=== PATIENT | female | born 1935 | race Asian ===

== ENCOUNTER 2017-05-29 13:49 | Outpatient (CLI) | payer MEDICARE, OTHER ==
--- NOTE | 2017-05-29 22:58 | Ultrasound Report ---
EXAM: ABDOMEN ULTRASOUND EXAM DATE: 05/29/2017 02:41 PM. CLINICAL HISTORY: Abdominal pain. History of cholecystectomy. COMPARISON: Noncontrast CT abdomen/pelvis 09/16/2015. Abdominal ultrasound 08/25/2010. TECHNIQUE: Real-time scanning was performed with static images obtained. FINDINGS: Liver: Increased parenchymal echogenicity, as before, most commonly indicating steatosis. Portal vein flow: Hepatopetal. Gallbladder: Surgically absent. Biliary System: Common bile duct measures 10 mm and tapers to 8 mm distally (upper limits of normal p ost cholecystectomy 10 mm). No intrahepatic or extrahepatic ductal dilatation. Pancreas: Atrophic, as before. The tail is obscured by overlying bowel gas. Kidneys: Right: 10.3 cm in length. Normal parenchymal echogenicity. Multiple cysts, the largest a 2.3 cm simpl e cyst in the medial midportion. No visualized shadowing stones or hydronephrosis. Left: 10.6 cm in length. No parenchymal echogenicity. Multiple cysts, the largest a 1.2 cm simple cys t in the inferior pole. Spleen: Normal size and echotexture, 7.6 cm in length. Aorta and Inferior Vena Cava: Atherosclerotic calcifications within the aorta. No aneurysm. The visua lized portions of the IVC are unremarkable. Other: None. IMPRESSION: 1. Steatotic liver. 2. No biliary ductal dilatation post cholecystectomy. 3. Bilateral simple renal cortical cysts. [facility] Referring Provider Line: [phone] SITE ID: [id number]
--- NOTE | 2017-05-30 15:24 | XRAY Report ---
EXAM: CHEST RADIOGRAPHY EXAM DATE: 05/29/2017 03:01 PM. CLINICAL HISTORY: CHEST CONGESTION. COMPARISON: None. TECHNIQUE: 2 views. FINDINGS: Lungs/Pleura: There is a vascular coil at the right lower lung. There is an adjacent 15 mm nodular de nsity at the right lung base. There is mild nonspecific prominence of the pulmonary interstitium. Mil dly tortuous aorta. Heart size is in the normal range. There is atelectasis/scarring or infiltrate in the RML or possibly lingula. There is blunting of the right costophrenic sulcus, suggesting small ef fusion or mild pleural thickening. No pneumothorax. Mediastinum: As above. Other: None. IMPRESSION: 1. Vascular coil at the right lower lung with adjacent 15 mm indeterminate nodular density. CT could be performed for further evaluation, at clinician discretion. 2. Atelectasis/scarring or infiltrate in the RML or possibly lingula. 3. Blunting of the right costophrenic sulcus, suggesting small effusion or mild pleural thickening. [facility] Referring Provider Line: [phone] SITE ID: [id number]
== END 2017-05-29 13:50 | disposition home or self-care (01) ==
LOC: DI 13:49
PROVIDERS: ATTEND Internal Medicine
DX: K76.0 Fatty (change of) liver, not elsewhere classified (principal); Q61.02 Congenital multiple renal cysts; R91.8 Other nonspecific abnormal finding of lung field
CPT/HCPCS: 71020; 76700

== ENCOUNTER 2017-06-03 07:49 | Outpatient (CLI) | payer MEDICARE, OTHER ==
--- NOTE | 2017-06-03 14:24 | CT Report ---
EXAM: CT CHEST EXAM DATE: 06/03/2017 08:18 AM. CLINICAL HISTORY: Abdominal and flank pain and right back pain. 15 mm right lower lobe density. COMPARISONS: Chest x-ray from 05/29/2017. CT abdomen and pelvis from 09/16/2015. TECHNIQUE: Routine helical CT imaging was performed through the chest. IV contrast: None. Reconstruct ions: Coronal and sagittal. In accordance with CT protocol optimization, one or more of the following dose reduction techniques w ere utilized for this exam: automated exposure control, adjustment of mA and/or KV based on patient s ize, or use of iterative reconstructive technique. FINDINGS: Lungs/Pleura: Lingular atelectasis and bronchial dilatation is seen with nearly complete volume loss. No endobronchial obstruction. Embolization coils are again seen in the right middle lobe projected w ithin a right pulmonary artery vessel with an AV malformation noted in the right middle lobe with the draining vessel going to the right inferior pulmonary vein. There is adjacent parenchymal scarring a nd pleural thickening peripherally. Within the posterior right lung base is a new 18 x 18 mm soft tis jordin masslike opacity with an adjacent dilated bronchus opacified with mucus/fluid rather than a promi nent vessel. No pleural effusions. No parenchymal cavities. Right middle lobe bronchiectasis with muc us opacification is also seen in the medial right middle lobe. Nodular density seen in the left lobe also present and also new measuring 8 mm. Calcifications along the medial right pleura seen. Biapical nodular scarring and pleural thickening noted. Mediastinum: Heart size is normal. Aortic valve calcifications. Coronary artery calcifications are se en. Calcified mediastinal and hilar lymph nodes. Heterogeneous thyroid gland with a right thyroid lob e 10 mm nodule. Tracheal diverticulum is also noted superiorly. Tiny hiatal hernia. Bones: Degenerative changes of the thoracic spine and both shoulders. No acute osseous abnormalities. Visualized Abdomen: Within the left lobe liver is a calcified granuloma. Included portions of the spl een demonstrate calcified granulomas. Splenic aneurysm is seen which is peripherally measuring approx imately 7 mm, as before. Included portions of the pancreas and adrenals are unremarkable. Upper pole right renal low-attenuation lesion incompletely visualized measuring 2.3 cm. Other: None. IMPRESSION: 1. 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 2. 18 mm lobular posterior inferior right lower lobe masslike consolidation and adjacent dilated bron chus containing mucus/fluid. Findings may represent a parenchymal lesion or an area of consolidation and is new compared to 09/16/2015. Nodular ill-defined density in the left lower lobe measuring 8 mm , indeterminate. Follow up chest CT recommended in 2-3 months treatment to assess if there is concern for an area of infectious consolidation. Otherwise PET/CT could be considered. 3. Medial right lobe and lingular volume loss, bronchiectasis and bronchial thickening with dilated b ronchial opacification. 4. Prior granulomatous disease. 5. Right thyroid lobe 10 mm nodule. If further detail as warranted then consider thyroid ultrasound. [facility] Referring Provider Line: [phone] SITE ID: [id number]
--- NOTE | 2017-06-03 14:25 | CT Report ---
EXAM: CT ABDOMEN EXAM DATE: 06/03/2017 08:18 AM. CLINICAL HISTORY: Abdominal pain. Right back pain. Flank pain. COMPARISON: 09/16/2015. 06/29/2006. TECHNIQUE: Routine helical CT imaging was performed through the abdomen. IV contrast: Amt/type. Ente kelli contrast: No. Reconstruction: Coronal and sagittal. In accordance with CT protocol optimization, one or more of the following dose reduction techniques w ere utilized for this exam: automated exposure control, adjustment of mA and/or KV based on patient s ize, or use of iterative reconstructive technique. FINDINGS: Lung Bases: Portions of an AV malformation are seen in the right middle lobe, seen better on the rece nt chest CT. Lobular mass-like density seen measuring 1.8 cm in the right lower lobe posteriorly is k nown interval. Adjacent right lower bronchial dilatation mucous opacification. Heart size is unchange d. Liver: Calcified granuloma is seen in the anterior left lobe of the liver. Otherwise, included portio ns of the liver are unremarkable. Gallbladder/Bile Ducts: Status post cholecystectomy, stable. Common bile duct prominence, unchanged. Spleen: Splenic granulomas. Calcified splenic artery aneurysm, unchanged. Pancreas: Atrophic. No peripancreatic edema. Adrenal Glands: Normal. Kidneys: Right renal low-attenuation lesions are seen in the upper pole as before, the largest medial ly measuring 22 mm, in the largest arising from the upper pole measuring 19 mm. Overall size and appe arance appear similar, although limited due to lack of contrast. Exophytic lateral left renal low-att enuation lesion also seen measuring 10 mm without significant change. No proximal ureteral dilatation . Peritoneal Cavity/Bowel: Stomach is mildly distended and unremarkable. No bowel obstruction on these unenhanced images. Moderate volume of stool seen in the colon. No diverticulitis. Appendix is not se en. No right lower quadrant pericecal inflammatory changes. Subcentimeter mesenteric and retroperiton eal lymph nodes are again seen unchanged. Descending duodenal diverticula are again seen. No intra-ab dominal fluid collections. Vasculature: Atherosclerotic calcified plaque. Abdominal aorta is tortuous. No aneurysm. Bones: Degenerative changes of the lower thoracic and lumbar spine. Lumbar facet arthropathy. No acut e osseous abnormalities are identified. Slight levoscoliosis of the lower lumbar spine. Other: None. IMPRESSION: 1. Status post cholecystectomy. Mildly prominent common bile duct, stable. 2. Bilateral renal low-attenuation lesions the prominent in the upper pole of the right kidney, simil ar in size compared to 09/16/2015. No nephrolithiasis or hydronephrosis. 3. No bowel obstruction. No evidence for diverticulitis. 4. New right lower lobe mass-like density measuring 1.8 cm, findings may be infectious/inflammatory i n etiology versus neoplastic in origin. Refer to CT chest report for further detail. [facility] Referring Provider Line: [phone] SITE ID: [id number]
== END 2017-06-03 07:50 | disposition home or self-care (01) ==
LOC: DI 07:49
PROVIDERS: ATTEND Internal Medicine
DX: Q25.72 Congenital pulmonary arteriovenous malformation (principal); R91.8 Other nonspecific abnormal finding of lung field; J47.9 Bronchiectasis, uncomplicated; E04.1 Nontoxic single thyroid nodule; N28.9 Disorder of kidney and ureter, unspecified; Z90.49 Acquired absence of other specified parts of digestive tract
CPT/HCPCS: 71250; 74150

== ENCOUNTER 2017-10-07 06:13 | Day surgery (SDC) | payer MEDICARE, OTHER ==
[2017-10-07] MEDS ORDERED: PROPARACAINE 0.5% OPHTH DROPS 15 ML ONE ×2 (06:25→07:01)
[2017-10-07] MEDS ORDERED: CYCLOPENTOLATE 1% OPHTH DROPS 2 ML ONE (06:26)
[2017-10-07] MEDS ORDERED: PHENYLEPHRINE 2.5% OPHTH 2 ML DROPS ONE (06:26)
[2017-10-07] MEDS ORDERED: KETOROLAC 0.45% OPHTH DROPS ONE (06:26)
[2017-10-07] MEDS ORDERED: PROPARACAINE 0.5% OPHTH DROPS 15 ML RIGHTEYE ONE ×2 (06:40→07:34)
[2017-10-07] MEDS ORDERED: PHENYLEPHRINE 2.5% OPHTH 2 ML DROPS RIGHTEYE ONE (06:40)
[2017-10-07] MEDS ORDERED: KETOROLAC 0.45% OPHTH DROPS RIGHTEYE ONE (06:40)
[2017-10-07] MEDS ORDERED: CYCLOPENTOLATE 1% OPHTH DROPS 2 ML RIGHTEYE ONE (06:40)
[2017-10-07] MEDS ORDERED: LACTATED RINGERS 500 ML IV ONE (06:48)
[2017-10-07] MEDS ORDERED: TIMOLOL 0.5% OPHTH DROPS ONE (07:02)
[2017-10-07] MEDS ORDERED: BRIMONIDINE 0.2% OPHTH DROPS 5 ML ONE (07:02)
[2017-10-07] MEDS ORDERED: EPINEPHrine 1 MG/ML AMP ONE (07:14)
[2017-10-07] MEDS ORDERED: EPINEPHrine 1 MG/ML AMP IVP ONE (07:32)
[2017-10-07] MEDS ORDERED: BRIMONIDINE 0.2% OPHTH DROPS 5 ML OPTH ONE (07:32)
[2017-10-07] MEDS ORDERED: TIMOLOL 0.5% OPHTH DROPS OPTH ONE (07:33)
[2017-10-07] MEDS ORDERED: CHONDR SULF/HYALURONATE SYRINGE IO ONE (07:33)
[2017-10-07] MEDS ORDERED: BSS/LIDOCAINE/EPINEPHRINE 1 ML SYRINGE IO ONE ×2 (07:33)
[2017-10-07] MEDS ORDERED: TRIAMCIN/MOXIFLOX/VANCO 1 ML VIAL IO ONE ×2 (07:34)
[2017-10-07 07:55] VITALS: BP 144/63
[2017-10-07] MEDS ORDERED: MIDAZOLAM 2 MG/2 ML VIAL IVP ONE (08:00)
--- NOTE | 2017-10-07 08:27 | OPERATIVE REPORT ---
DATE OF SERVICE: 10/07/2017 Physician: Geovanny House MD PREOPERATIVE DIAGNOSIS: Visually significant cataract, right eye. This is her first cataract surgery. POSTOPERATIVE DIAGNOSIS: Visually significant cataract, right eye. This is her first cataract surgery. NAME OF PROCEDURE: Phacoemulsification with posterior chamber intraocular lens implant, right eye. SURGEON: Geovanny House MD ANESTHESIA: Monitored anesthesia care. COMPLICATIONS: None. OPERATIVE INDICATIONS: This is an 82-year-old woman with progressive vision loss in the right eye due to 2+ nuclear sclerotic, 2+ cortical, and 3+ posterior subcapsular cataract. Best corrected visual acuity was 20/200 with glare to hand motion vision in the right eye. Indications for surgery were overall decrease in vision, difficulty seeing words on the computer screen, difficulty reading, difficulty seeing words, closed captions or game scores on TV, difficulty seeing street signs, difficulty driving at low light or at night , difficulty driving at night because of headlights from other vehicles, difficulty with glare or bright light in any situation, difficulty tracking a golf ball and decreased acuity with firearms. She was consented at length concerning risks and benefits of cataract surgery, after which she expressed a desire to proceed with surgery. OPERATIVE PROCEDURE: Patient was taken into the OR #3 and placed under monitored anesthesia care. A surgical timeout was conducted confirming correct patient, correct procedure, and correct surgical site. She was given topical anesthesia, and prepped and draped in the usual sterile fashion. The eye was entered at the 12 and 9 o'clock positions. Intracameral Shugarcaine was injected into the anterior chamber, followed by Viscoat. A continuous-tear curvilinear capsulorrhexis was performed. Nucleus was hydrodissected and phacoemulsified. Of note though, her iris seemed to be very floppy and was continually coming into the phaco port and to the wound when there was no instrument in the eye, so there was significant loss of iris stroma nasally. The cortex was evacuated using automated infusion and aspiration (I&A). There was still some posterior subcapsular cataract material left at the end of the case. Provisc was injected into the capsular bag and a 22.5 diopter intraocular lens was inserted in the bag. Approximately 0.8 mL of a mixture of triamcinolone and moxifloxacin was injected subconjunctivally in the superior quadrant for infection and inflammation prophylaxis. I&A was used to evacuate the viscoelastic material. The eye was inflated to physiologic pressure using balanced salt solution and found to be watertight. The patient was taken from the operating room in good condition, given postop instructions. TD: 10/07/2017 08:27 MTDD
== END 2017-10-07 06:14 | disposition home or self-care (01) ==
LOC: SDS 06:13
PROVIDERS: ATTEND Ophthalmology
PROC: 08RJ3JZ Replacement of Right Lens with Synthetic Substitute, Percutaneous Approach (ICD-10-PCS; principal; 2017-10-07 07:30)
DX: H25.811 Combined forms of age-related cataract, right eye (principal); H21.81 Floppy iris syndrome; E11.9 Type 2 diabetes mellitus without complications
CPT/HCPCS: 66984; A9270; J3490; V2632

== ENCOUNTER 2019-01-30 12:47 | Emergency (ER) | payer MEDICARE, OTHER ==
[2019-01-30 12:57] VITALS: BP 137/93
--- NOTE | 2019-01-30 13:35 | ED Physician Documentation ---
History of Present Illness - Stated complaint Stated Complaint: CONSTIPATION - Chief complaint Chief Complaint: Abd Pain - History obtained from History obtained from: Patient, Family - History of Present Illness Timing: Today - Additonal information Additional information: 83-year-old female has been constipated for about 3 days and she has been unable to get stool to pass. She has developed pain in her lower abdomen and she is here for help. She feels a lot of pain associated with this. Her son indicates that she has infrequent bowel movements to begin with and she is taken some laxative which does not seem to have been effective. Review of Systems Constitutional: denies: Fever GI: reports: Abdominal Pain, Constipation. 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 : None HEENT: None Psych: None Musculoskeletal: None Derm: None - Past Surgical History Past Surgical History: Yes General: Cholecystectomy, Colonoscopy /AUTOMOTIVE GLAZIER: Hysterectomy - Present Medications Home Medications: Ambulatory Orders Medication Instructions Recorded Confirmed Ascorbic Acid [Vitamin C] 1,000 mg PO DAILY 08/15/15 08/15/15 Cholecalciferol (Vitamin D3) 400 unit PO DAILY 08/15/15 08/15/15 [Vitamin D3] Multivitamin [Multivitamins] 1 each PO DAILY 08/15/15 08/15/15 [place]-3S/Dha/Epa/Fish Oil [Fish 1 each PO DAILY 08/15/15 08/15/15 Oil 1,200 mg Softgel] RX: Vitamin B Complex 1 each PO DAILY 08/15/15 08/15/15 metFORMIN [Glucophage] 250 mg PO DAILY 08/15/15 08/15/15 - Allergies Allergies/Adverse Reactions: Allergies Allergy/AdvReac Type Severity Reaction Status Date / Time No Known Drug Allergies Allergy Verified 01/30/19 12:56 - Social History Does the pt smoke?: No Smoking Status: Never smoker Does the pt drink ETOH?: No Does the pt have substance abuse?: No - Immunizations Immunizations are current?: Yes - POLST Patient has POLST: No PD ED PE NORMAL - Vitals Vital signs reviewed: Yes (tachy and hypertensive ) - General General: Alert and oriented X 3, Well developed/nourished, Other (patient is standing and is in pain ) - HEENT HEENT: Atraumatic, PERRL - Respiratory Respiratory: No respiratory distress - Abdomen Abdomen: Soft, Non tender - Rectal Rectal: Other (There are inflamed external hemorrhoids that are not thrombosed. There is hard stool in the vault and this is removed manually. ) - Back Back: No CVA TTP, No spinal TTP - Derm Derm: Normal color, Warm and dry, No rash - Extremities Extremities: No deformity, No edema - Neuro Neuro: Alert and oriented X 3, polysomnographer 2-12 intact, No motor deficit, No sensory deficit, Normal speech Eye Opening: Spontaneous Motor: Obeys Commands Verbal: Oriented GCS Score: 15 - Psych Psych: Normal affect, Other (mood is anxious ) Results - Vitals Vitals: Vital Signs - 24 hr 01/30/19 12:55 Temperature 37 C Heart Rate 143 H Respiratory 22 Rate Blood Pressure 137/93 H O2 Saturation 97 Oxygen O2 Source Room air PD MEDICAL DECISION MAKING - ED course Complexity details: reviewed results, re-evaluated patient, considered differential, d/w patient, d/w family ED course: 83-year-old female with a history of constipation is having some difficulty getting stool out and she is feeling horrible. She is disimpacted and then an enema was placed and following that she is able to evacuate her bowels and feels normal. She is discharged home. Departure - Departure Disposition: 01 Home, Self Care Clinical Impression: Constipation Condition: Stable Instructions: ED Constipation Follow-Up: Iman Mortensen MD [Primary Care Provider] - Discharge Date/Time: 01/30/19 13:53
[2019-01-30] MEDS ORDERED: SALINE ENEMA 133 ML BOTTLE RC STA (13:40)
== END 2019-01-30 13:53 | disposition home or self-care (01) ==
LOC: ED 12:47
DX: K59.00 Constipation, unspecified (principal); E11.9 Type 2 diabetes mellitus without complications; Z79.84 Long term (current) use of oral hypoglycemic drugs
CPT/HCPCS: 99282; 99283; A9270

== ENCOUNTER 2019-03-01 13:31 | Outpatient (CLI) | payer MEDICARE, OTHER ==
--- NOTE | 2019-03-02 10:39 | XRAY Report ---
Reason: UNSPECIFIED ABDOMINAL PAIN Procedure Date: 03/01/2019 Accession Number: [id number] / [id number] Procedure: XR - Abdomen 2 View X-Ray CPT Code: 93258 FULL RESULT: EXAM: ABDOMEN RADIOGRAPHY EXAM DATE: 03/01/2019 02:14 PM. CLINICAL HISTORY: Unspecified abdominal pain. COMPARISON: ABDOMEN W/O 06/03/2017 8:07 AM. TECHNIQUE: 2 views. FINDINGS: Lung Bases: Unremarkable. Bowel Gas Pattern: Nonobstructive with moderate stool burden. Other: No gross free air. Previous cholecystectomy. 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 IMPRESSION: Moderate stool burden. [facility]
== END 2019-03-01 13:32 | disposition home or self-care (01) ==
LOC: DI 13:31
PROVIDERS: ATTEND Family Medicine
DX: R10.9 Unspecified abdominal pain (principal); K59.09 Other constipation
CPT/HCPCS: 74019

== ENCOUNTER 2019-03-30 10:55 | Outpatient (CLI) | payer MEDICARE, OTHER ==
--- NOTE | 2019-04-03 12:00 | Mammography Report ---
Reason: SCREENING MAMMO Procedure Date: 03/30/2019 Accession Number: [id number] / [id number] Procedure: MGN - Screening Mammo Dig Bilat CPT Code: FULL RESULT: EXAM: Screening Mammo Dig Bilat DATE: 03/30/2019 11:38 AM CLINICAL HISTORY: Screening encounter. TECHNIQUE: (B) - Bilateral CC and MLO views were obtained. COMPARISON: None PARENCHYMAL PATTERN: (D) - The breast(s) demonstrate(s) heterogeneously dense fibroglandular parenchyma. FINDINGS: There are bilateral typically benign coarse calcifications and typically benign vascular calcifications. There are no suspicious masses, calcifications, or areas of distortion. IMPRESSION: Benign findings. BI-RADS category 2. RECOMMENDATION: (ANNUAL) - Recommend routine annual screening mammography. BI-RADS CATEGORY: (2) - Benign Findings. STANDARD QUALIFYING STATEMENTS: 1. This examination was not reviewed with the aid of Computer-Aided Detection (CAD). 2. A negative or benign imaging report should not preclude biopsy if clinically suspicious findings are present. 3. Dense breasts may obscure an underlying neoplasm. 4. This examination was reviewed without the aid of 3D breast imaging (tomosynthesis).
== END 2019-03-30 10:56 | disposition home or self-care (01) ==
LOC: DI.N 10:55
PROVIDERS: ATTEND Internal Medicine
DX: Z12.31 Encounter for screening mammogram for malignant neoplasm of breast (principal)
CPT/HCPCS: 77067

== ENCOUNTER 2020-03-13 16:01 | Emergency (ER) | payer MEDICARE, OTHER ==
[2020-03-13 16:16] VITALS: BP 106/79
--- NOTE | 2020-03-13 16:31 | ED Physician Documentation ---
PD HPI ABD PAIN - Stated complaint Stated Complaint: ABD PAIN - Chief complaint Chief Complaint: Abd Pain - History obtained from History obtained from: Patient - Additional information Additional information: She has not been able to have a bowel movement in several days and has severe rectal and pelvic pressure. She tried an enema at home with only partial relief. Review of Systems Constitutional: denies: Fever, Chills Throat: reports: Reviewed and negative Cardiac: reports: Reviewed and negative GI: reports: Constipation. 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 : None HEENT: None Psych: None Musculoskeletal: None Derm: None - Past Surgical History Past Surgical History: Yes General: Cholecystectomy, Colonoscopy /LABORATORY APPARATUS GLASS BLOWER: Hysterectomy - Present Medications Home Medications: Ambulatory Orders Medication Instructions Recorded Confirmed Ascorbic Acid [Vitamin C] 1,000 mg PO DAILY 08/15/15 08/15/15 Cholecalciferol (Vitamin D3) 400 unit PO DAILY 08/15/15 08/15/15 [Vitamin D3] Multivitamin [Multivitamins] 1 each PO DAILY 08/15/15 08/15/15 [place]-3S/Dha/Epa/Fish Oil [Fish 1 each PO DAILY 08/15/15 08/15/15 Oil 1,200 mg Softgel] Vitamin B Complex 1 each PO DAILY 08/15/15 08/15/15 metFORMIN [Glucophage] 250 mg PO DAILY 08/15/15 08/15/15 - Allergies Allergies/Adverse Reactions: Allergies Allergy/AdvReac Type Severity Reaction Status Date / Time No Known Drug Allergies Allergy Verified 01/30/19 12:56 - Social History Does the pt smoke?: No Smoking Status: Never smoker Does the pt drink ETOH?: No Does the pt have substance abuse?: No - Immunizations Immunizations are current?: Yes - POLST Patient has POLST: No PD ED PE NORMAL - Vitals Vital signs reviewed: Yes - General General: Alert and oriented X 3, No acute distress - HEENT HEENT: PERRL, EOMI - Neck Neck: Supple, no meningeal sign, No bony TTP - Female Female : Other (She is a firm fecal impaction that was partially disimpacted during exam and an enema was placed. Dali MATHIS present for exam.) - Back Back: No CVA TTP, No spinal TTP - Neuro Neuro: Alert and oriented X 3, Normal speech Results - Vitals Vitals: Vital Signs - 24 hr 03/13/20 16:12 Temperature 36.7 C Heart Rate 138 H Respiratory 22 Rate Blood Pressure 106/79 O2 Saturation 96 Oxygen O2 Source Room air PD MEDICAL DECISION MAKING - ED course ED course: Enema and manual disimpaction with lg BM here, and feeling better. Departure - Departure Disposition: 01 Home, Self Care Clinical Impression: Fecal impaction Condition: Good Record reviewed to determine appropriate education?: Yes Instructions: ED Impaction Fecal Treated Comments: Call your doctor to arrange a follow-up appointment, make the next available appointment. In the interim, return anytime if worse or if new symptoms develop.
== END 2020-03-13 16:56 | disposition home or self-care (01) ==
LOC: ED 16:01
DX: K56.41 Fecal impaction (principal); E11.9 Type 2 diabetes mellitus without complications; Z79.84 Long term (current) use of oral hypoglycemic drugs
CPT/HCPCS: 99281; 99284

== ENCOUNTER 2020-12-19 06:56 | Day surgery (SDC) | payer MEDICARE, OTHER ==
[~2020-12-19 06:56] MED LIST: CYCLOPENTOLATE 1% OPHTH DROPS 2 ML ONE; KETOROLAC 0.45% OPHTH DROPS ONE; PHENYLEPHRINE 2.5% OPHTH 2 ML DROPS ONE; PROPARACAINE 0.5% OPHTH DROPS 15 ML ONE
[2020-12-19] MEDS ORDERED: LACTATED RINGERS 1,000 ML IV ONE (07:22)
--- NOTE | 2020-12-19 07:38 | ANESTHESIA ---
Pre-Anesthesia VS, & Labs - Diagnosis left eye senile combined cataract - Procedure left eye cataract extraction with IOL implant Vital Signs: Temp Pulse Resp BP Pulse Ox 36.7 C 85 16 145/61 H 98 12/19/20 07:00 12/19/20 07:00 12/19/20 07:00 12/19/20 07:00 12/19/20 07:00 Height: 5 ft 1 in Weight (kg): 58.5 kg Body Mass Index: 24.3 BMI Classification: Healthy weight - NPO >8 hours - Is Patient ?: No - Lab Results Current Lab Results: Laboratory Tests 12/19/20 07:20: POC Whole Bld Glucose 109 H Home Medications and Allergies Ascorbic Acid [Vitamin C] 1,000 mg PO DAILY 08/15/15 Cholecalciferol (Vitamin D3) [Vitamin D3] 400 unit PO DAILY 08/15/15 Multivitamin [Multivitamins] 1 each PO DAILY 08/15/15 [place]-3S/Dha/Epa/Fish Oil [Fish Oil 1,200 mg Softgel] 1 each PO DAILY 08/15/15 Vitamin B Complex 1 each PO DAILY 08/15/15 metFORMIN [Glucophage] 500 mg PO DAILY 08/15/15 Allergies/Adverse Reactions: Allergies Allergy/AdvReac Type Severity Reaction Status Date / Time No Known Drug Allergies Allergy Verified 01/30/19 12:56 Anes History & Medical History - Anesthetic History Anesthesia Complications: reports: No previous complications - Medical History Cardiovascular: reports: None Pulmonary: reports: None Gastrointestinal: reports: None Urinary: reports: None Neuro: reports: None Musculoskeletal: reports: None Endocrine/Autoimmune: reports: Type 2 diabetes Blood Disorders: reports: None Skin: reports: None Smoking Status: Never smoker Psychosocial: reports: No issues indicated History of Cancer?: No - Surgical History General: reports: Cholecystectomy, Colonoscopy Gynecologic: reports: Hysterectomy Exam General: Alert, Oriented x3, Cooperative, No acute distress Dental: WNL Mouth Openin Fingerbreadth Neck Mobility: Normal Mallampati classification: III Thyromental Distance: 4-6 cm Mental/Cognitive Status: Alert/Oriented X3, Normal for patient Plan Anesthesia Type: MAC Consent for Procedure(s) Verified and Reviewed: Yes Code Status: Attempt Resuscitation ASA classification: 2-Mild systemic disease Is this case an emergency?: No
[2020-12-19] MEDS ORDERED: MIDAZOLAM 2 MG/2 ML VIAL ONE (07:41)
[2020-12-19] MEDS ORDERED: EPINEPHrine 1 MG/ML AMP ONE (07:43)
[2020-12-19] MEDS ORDERED: TRIAMCIN/MOXIFLOX OPHTHALMIC 0.6 ML VIAL IO ONE ×2 (07:43→08:05)
[2020-12-19] MEDS ORDERED: BSS/LIDOCAINE/EPINEPHRINE 1 ML SYRINGE ONE (07:43)
[2020-12-19] MEDS ORDERED: VANCOMYCIN OPHTHALMI 8MG/0.8ML 8 MG/0.8 ML SYRINGE IO ONE ×2 (07:43→08:06)
[2020-12-19] MEDS ORDERED: BRIMONIDINE 0.2% OPHTH DROPS 5 ML ONE (07:43)
[2020-12-19] MEDS ORDERED: TIMOLOL 0.5% OPHTH DROPS ONE (07:43)
--- NOTE | 2020-12-19 07:58 | OPERATIVE REPORT ---
Operative Report - Other Other Information/Narrative: Date of Surgery: 12/19/20 Preop Dx: Visually significant cataract left eye. Cataract surgery was performed in the right eye on 11/14/2020. Postop Dx: Same Procedure: Phacoemulsification with posterior chamber intraocular lens implant left eye Surgeon: Dr. Geovanny House Anesthesia: Monitored anesthesia care Complications: None Operative Indications: This is a 85-year-old F with progressive vision loss in the left eye due to 2+ nuclear sclerotic and 1+ posterior subcapsular cataract. Best corrected visual acuity was 20/50 with glare to hand-motion vision in the left eye. Indications for surgery were: - Overall decrease in vision - Difficulty seeing street signs _ Difficulty driving in low light or at night - Difficulty driving at night because of headlights from other vehicles The patient was consented at length concerning the risks and benefits of cataract surgery after which the patient expressed a desire to proceed with surgery. Operative Procedure: The patient was taken into OR#3 and placed under monitored anesthesia care. A surgical time-out was conducted confirming correct patient, correct procedure, and correct surgical site. The patient was given topical anesthesia and then prepped and draped in the usual sterile fashion. The eye was entered at the 6 and 3 oclock positions. Intracameral Shugarcaine was injected into the anterior chamber followed by a dispersive viscoelastic. A continuous-tear curvilinear capsulorhexis was performed. The nucleus was hydrodissected and phacoemulsified. The cortex was evacuated using automated infusion and aspiration. A cohesive viscoelastic was injected into the capsular bag and a 16.5 diopter intraocular lens was inserted into the bag. Infusion and aspiration were used to evacuate the viscoelastic materials from the eye. The wounds were hydrated and the eye inflated to physiologic pressure using balanced salt solution. Approximately 0.25ml of a mixture of triamcinolone and moxiflo xacin was injected trans-sclerally into the vitreous in the inferotemporal quadrant using a 30 gauge cannula. An additional 0.55ml of a mixture of triamcinolone, moxifloxacin, and vancomycin was injected subconjunctivally in the superior quadrant for infection and inflammation prophylaxis. Wound integrity was checked with Weck-Palmira sponges. The patient was taken from the operating room in good condition and given post-op instructions.
[2020-12-19] MEDS ORDERED: BSS/LIDOCAINE/EPINEPHRINE 1 ML SYRINGE IO ONE (08:05)
[2020-12-19] MEDS ORDERED: EPINEPHrine 1 MG/ML AMP IR ONE (08:05)
[2020-12-19] MEDS ORDERED: BRIMONIDINE 0.2% OPHTH DROPS 5 ML OPTH ONE (08:05)
[2020-12-19] MEDS ORDERED: TIMOLOL 0.5% OPHTH DROPS OPTH ONE (08:05)
[2020-12-19] MEDS ORDERED: CHONDR SULF/HYALURONATE SYRINGE IO ONE (08:05)
[2020-12-19] MEDS ORDERED: PROPARACAINE 0.5% OPHTH DROPS 15 ML EACHEYE ONE (08:06)
[2020-12-19] MEDS ORDERED: LACTATED RINGERS 950 ML IV ONE (08:25)
--- NOTE | 2020-12-19 08:33 | OPERATIVE REPORT ---
Operative Report - Other Other Information/Narrative: Date of Surgery: 12/19/20 Preop Dx: Visually significant cataract left eye. Cataract surgery was performed in the right eye on 09/30/20. Postop Dx: Same Procedure: Phacoemulsification with posterior chamber intraocular lens implant left eye Surgeon: Dr. Geovanny House Anesthesia: Monitored anesthesia care Complications: None Operative Indications: This is a 85-year-old F with progressive vision loss in the left eye due to 2+ nuclear sclerotic, 2-3+ cortical and 4+ posterior subcapsular cataract. Best corrected visual acuity was 20/500 with glare to light-perception vision in the left eye. Indications for surgery were: - Difficulty reading - Difficulty driving in low light or at night - Difficulty driving at night because of headlights from other vehicles - Difficulty with glare or bright lights in any situation The patient was consented at length concerning the risks and benefits of cataract surgery after which the patient expressed a desire to proceed with surgery. Operative Procedure: The patient was taken into OR#3 and placed under monitored anesthesia care. A surgical time-out was conducted confirming correct patient, correct procedure, and correct surgical site. The patient was given topical anesthesia and then prepped and draped in the usual sterile fashion. The eye was entered at the 6 and 3 oclock positions. Intracameral Shugarcaine was injected into the anterior chamber followed by a dispersive viscoelastic. A continuous-tear curvilinear capsulorhexis was performed. The nucleus was hydrodissected and phacoemulsified. The cortex was evacuated using automated infusion and aspiration. A cohesive viscoelastic was injected into the capsular bag and a 22.0 diopter intraocular lens was inserted into the bag. Infusion and aspiration were used to evacuate the viscoelastic materials from the eye. The wounds were hydrated and the eye inflated to physiologic pressure using balanced salt solution. Approximately 0.25ml of a mixture of triamcinolone and moxifloxacin was injected trans-sclerally into the vitreous in the inferotemporal quadrant using a 30 gauge cannula. An additional 0.55ml of a mixture of triamcinolone, moxifloxacin, and vancomycin was injected subconjunctivally in the superior quadrant for infection and inflammation prophylaxis. Wound integrity was checked with Weck-Palmira sponges. The patient was taken from the operating room in good condition and given post-op instructions.
[2020-12-19 09:13] VITALS: BP 130/61
--- NOTE | 2020-12-19 09:50 | ANESTHESIA POST OP EVALUATION ---
Anesthesia Post Eval - Post Anesthesia Eval Vitals: Last Vital Signs Temp 36.3 C L 12/19/20 09:12 Pulse 73 12/19/20 09:12 Resp 16 12/19/20 09:12 BP 130/61 12/19/20 09:12 Pulse Ox 96 12/19/20 09:12 CV Function Including HR & BP: Stable Pain Control: Satisfactory Nausea & Vomiting: Negative Mental Status: Baseline Respiratory Status: Airway Patent Hydration Status: Satisfactory Anesthesia Complications: None
== END 2020-12-19 06:57 | disposition home or self-care (01) ==
LOC: SDS 06:56
PROVIDERS: ATTEND Ophthalmology
DX: E11.36 Type 2 diabetes mellitus with diabetic cataract (principal); H25.812 Combined forms of age-related cataract, left eye; Z79.84 Long term (current) use of oral hypoglycemic drugs; Z98.41 Cataract extraction status, right eye
CPT/HCPCS: 66984; A9270; J3490; J7120; V2632

== ENCOUNTER 2022-06-19 12:00 | Emergency (ER) | payer MEDICARE, OTHER ==
--- NOTE | 2022-06-19 12:19 | ED Physician Documentation ---
PD HPI ABD PAIN - Stated complaint Stated Complaint: CONSTIPATION - Chief complaint Chief Complaint: Abd Pain - History obtained from History obtained from: Patient (86-year-old woman presents very uncomfortable with no bowel movement for the last 4 days. She is having a lot of rectal pain. Denies vomiting. This has happened before and was disimpacted successfully here about 2 years ago.) Review of Systems Constitutional: reports: Reviewed and negative Eyes: reports: Reviewed and negative Cardiac: reports: Reviewed and negative Respiratory: reports: Reviewed and negative PD PAST MEDICAL HISTORY - Past Medical History Cardiovascular: None Respiratory: None Neuro: None Endocrine/Autoimmune: Type 2 diabetes GI: None [employer]: None : None HEENT: None Psych: None Musculoskeletal: None Derm: None - Past Surgical History Past Surgical History: Yes General: Cholecystectomy, Colonoscopy /[employer]: Hysterectomy - Present Medications Home Medications: Ambulatory Orders Medication Instructions Recorded Confirmed Ascorbic Acid [Vitamin C] 1,000 mg PO DAILY 08/15/15 12/18/20 Cholecalciferol (Vitamin D3) 400 unit PO DAILY 08/15/15 12/18/20 [Vitamin D3] Multivitamin [Multivitamins] 1 each PO DAILY 08/15/15 12/18/20 [place]-3S/Dha/Epa/Fish Oil [Fish 1 each PO DAILY 08/15/15 12/18/20 Oil 1,200 mg Softgel] Vitamin B Complex 1 each PO DAILY 08/15/15 12/18/20 metFORMIN [Glucophage] 500 mg PO DAILY 08/15/15 12/18/20 - Allergies Allergies/Adverse Reactions: Allergies Allergy/AdvReac Type Severity Reaction Status Date / Time No Known Drug Allergies Allergy Verified 06/19/22 12:11 - Social History Does the pt smoke?: No Smoking Status: Never smoker Does the pt drink ETOH?: No Does the pt have substance abuse?: No - Immunizations Immunizations are current?: Yes - POLST Patient has POLST: No PD ED PE NORMAL - Vitals Vital signs reviewed: Yes - General General: Alert and oriented X 3, Other (She is standing at the bedside leaning on the bed looking uncomfortable) - Abdomen Abdomen: Normal bowel sounds, Soft, Non tender - Rectal Rectal: Other (Firm fecal impaction. Some protruding hemorrhoids from straining. All exams and procedures done with Cassandra MATHIS present and chaperoning.) - Neuro Neuro: Alert and oriented X 3, Normal speech Results - Vitals Vitals: Vital Signs - 24 hr 06/19/22 06/19/22 12:05 13:25 Temperature 36.2 C L Heart Rate 131 H 142 H Respiratory 16 20 Rate Blood Pressure 168/71 H 136/64 H O2 Saturation 95 96 Oxygen O2 Source Room air - EKG (time done) 1333 Rate: Rate (enter#) (120) Rhythm: Sinus tachycardia Hayes: Normal Intervals: Normal MS QRS: Normal Ischemia: Normal ST segments PD Medical Decision Making - ED course ED course: After some manual disimpaction into saline enema she had a large bowel movement and felt much better. Note made of her heart rate, because of that we did an EKG showing sinus tachycardia. I reviewed her chart, on the prior visits for fecal impaction she was also tachycardic but in the interim at clinic visit she was not. Close follow-up was advised. Departure - Departure Disposition: 01 Home, Self Care Clinical Impression: Fecal impaction Condition: Good Record reviewed to determine appropriate education?: Yes Instructions: ED Impaction Fecal Treated Comments: Drink plenty of water, return if worse, follow-up with your primary care physician, next available appointment.
--- OUTSIDE RECORDS SUMMARY | 2022-06-19 12:57 | EXTERNAL MEDICAL SUMMARY RPT | Continuity of Care Document ---
:1935 Author Organization [facility] [address] [place] [address] Phone Allergies No information. Encounters No information. Functional Status No information. Immunizations No information. Medications No information. Problems date description facility 2022-06-03 12:56 Spinal stenosis, lumbar region with [facility] claudication 2022-06-05 09:54 Spinal stenosis, lumbar region with [facility] claudication Procedures No information. Results/Labs test date author facility value unit interpret ation Result panel 1 (unknown) (no (unknown) (unknown) (no value) (units (unk nown) date) unknown) (unknown) (no (unknown) (unknown) 1. At L4-5, there (units (unknown) date) is moderate to unknown) severe right neural foraminal narrowing and (unknown) (no (unknown) (unknown) 06/03/22 (units (unkno wn) date) unknown) (unknown) (no (unknown) (unknown) [address] [place] [address] (units (unknown) date) unknown) (unknown) (no (unknown) (unknown) 2. At L3-4, there (units (unknown) date) is moderate unknown) narrowing of the spinal canal and mild bilateral (unknown) (no (unknown) (unknown) 3. Additional (units ( unknown) date) multilevel unknown) degenerative disc disease and facet hypertrophy as (unknown) (no (unknown) (unknown) 621 (units (unkno wn) date) unknown) (unknown) (no (unknown) (unknown) Accession Number: (units (unknown) date) [id number] unknown) (unknown) (no (unknown) (unknown) Age/Sex: 86 / F (units (unknown) date) Date of Service: unknown) (unknown) (no (unknown) (unknown) Alignment and (units ( unknown) date) Curvature: There unknown) is normal bony alignment. (unknown) (no (unknown) (unknown) MOUNA Shin (units ( unknown) date) [id number] unknown) (unknown) (no (unknown) (unknown) Approved by: (units (u nknown) date) olu Faust M.D. on 06/04/2022 at 11:13 (unknown) (no (unknown) (unknown) Bone Marrow: (units (u nknown) date) Marrow is of unknown) normal overall signal. No acute vertebral body (unknown) (no (unknown) (unknown) COMPARISON: None. (units (unknown) date) unknown) (unknown) (no (unknown) (unknown) : 1935 (units (unknown) date) Acct:[id number] unknown) (unknown) (no (unknown) (unknown) FINDINGS: (units (unkn own) date) unknown) (unknown) (no (unknown) (unknown) IMPRESSION: (units (un known) date) unknown) (unknown) (no (unknown) (unknown) INDICATIONS: (units (u nknown) date) spinal stenosis unknown) (unknown) (no (unknown) (unknown) Image quality: (units (unknown) date) Excellent. unknown) (unknown) (no (unknown) (unknown) [facility] (units (unknown) date) unknown) (unknown) (no (unknown) (unknown) L1-L2: Mild disc (units (unknown) date) desiccation and unknown) circumferential disc bulging without (unknown) (no (unknown) (unknown) L2-L3: Disc (units (un known) date) desiccation and unknown) moderate circumferential disc bulging as well as (unknown) (no (unknown) (unknown) L3-L4: Disc (units (un known) date) desiccation and unknown) mild circumferential disc bulging with mild (unknown) (no (unknown) (unknown) L4-L5: Disc (units (un known) date) desiccation and unknown) loss of disc space height with moderate (unknown) (no (unknown) (unknown) L5-S1: Mild disc (units (unknown) date) desiccation and unknown) [id number] bilateral neural foraminal (unknown) (no (unknown) (unknown) Loc: MRI (units (unkno wn) date) unknown) (unknown) (no (unknown) (unknown) Magnetic (units (unkno wn) date) Resonance Report unknown) (unknown) (no (unknown) (unknown) Noncontrast (units (un known) date) sagittal T1 spin unknown) echo and T2 fast echo, sagittal STIR, and T2 fast (unknown) (no (unknown) (unknown) Ordering (units (unkno wn) date) Provider: unknown) Mor Randle MD (unknown) (no (unknown) (unknown) PROCEDURE: MR (units ( unknown) date) LUMBAR SPINE WO unknown) CON (unknown) (no (unknown) (unknown) Paraspinous Soft (units (unknown) date) Tissues: No unknown) paravertebral masses. [id number] cysts are (unknown) (no (unknown) (unknown) Patient: (units (o wn) date) Yaya Gerardo MR#: unknown) [id number] (unknown) (no (unknown) (unknown) Procedure: MR (units ( unknown) date) lumbar spine wo unknown) con (unknown) (no (unknown) (unknown) Signed (units (unkno wn) date) unknown) (unknown) (no (unknown) (unknown) Spinal Cord: (units (u nknown) date) Conus medullaris unknown) terminates at the L1 level. Visualized cord (unknown) (no (unknown) (unknown) T12-L1: Disc (units (u nknown) date) desiccation and unknown) mild circumferential disc bulging without (unknown) (no (unknown) (unknown) TECHNIQUE: (units (unk nown) date) unknown) (unknown) (no (unknown) (unknown) any level. (units (unk nown) date) unknown) (unknown) (no (unknown) (unknown) bilateral facet (units (unknown) date) hypertrophy, which unknown) result in mild to moderate narrowing of the (unknown) (no (unknown) (unknown) bilateral facet (units (unknown) date) unknown) (unknown) (no (unknown) (unknown) bulging and, (units (u nknown) date) moderate facet unknown) hypertrophy, and buckling of the ligamentum flavum, (unknown) (no (unknown) (unknown) canal as well as (units (unknown) date) mild to moderate unknown) left and mild right neural foraminal (unknown) (no (unknown) (unknown) canal stenosis or (units (unknown) date) neural foraminal unknown) narrowing. (unknown) (no (unknown) (unknown) canal stenosis. (units (unknown) date) unknown) (unknown) (no (unknown) (unknown) canal. (units (unkno wn) date) unknown) (unknown) (no (unknown) (unknown) circumferential (units (unknown) date) disc unknown) (unknown) (no (unknown) (unknown) compression (units (un known) date) unknown) (unknown) (no (unknown) (unknown) demonstrates (units (u nknown) date) unknown) (unknown) (no (unknown) (unknown) described in (units (u nknown) date) unknown) (unknown) (no (unknown) (unknown) detail in the (units ( unknown) date) body of the unknown) report, resulting in multilevel [id number] (unknown) (no (unknown) (unknown) foraminal (units (unkn own) date) narrowing and unknown) spinal canal stenosis. No high-grade spinal canal (unknown) (no (unknown) (unknown) foraminal (units (unkn own) date) narrowing. unknown) (unknown) (no (unknown) (unknown) fractures. (units (unk nown) date) unknown) (unknown) (no (unknown) (unknown) hypertrophy and (units (unknown) date) buckling of the unknown) ligamentum flavum, which result in moderate (unknown) (no (unknown) (unknown) imaged in the (units ( unknown) date) kidneys unknown) bilaterally. There is grade 2 fatty infiltration of the (unknown) (no (unknown) (unknown) left neural (units (un known) date) foraminal unknown) narrowing as well as moderate narrowing of the spinal (unknown) (no (unknown) (unknown) may be performed. (units (unknown) date) unknown) (unknown) (no (unknown) (unknown) mild (units (unkno wn) date) unknown) (unknown) (no (unknown) (unknown) moderate (units (unkno wn) date) unknown) (unknown) (no (unknown) (unknown) narrowing of (units (u nknown) date) unknown) (unknown) (no (unknown) (unknown) narrowing, (units (unk nown) date) unknown) (unknown) (no (unknown) (unknown) narrowing. (units (unk nown) date) unknown) (unknown) (no (unknown) (unknown) neural (units (unkno wn) date) unknown) (unknown) (no (unknown) (unknown) normal signal and (units (unknown) date) size. unknown) (unknown) (no (unknown) (unknown) paraspinous (units (un known) date) musculature. unknown) (unknown) (no (unknown) (unknown) partially (units (unkn own) date) unknown) (unknown) (no (unknown) (unknown) results and (units (un known) date) moderate narrowing unknown) of the spinal canal as well as moderate left and (unknown) (no (unknown) (unknown) significant (units (un known) date) spinal unknown) (unknown) (no (unknown) (unknown) significant (units (un known) date) unknown) (unknown) (no (unknown) (unknown) spin echo (units (unkn own) date) unknown) (unknown) (no (unknown) (unknown) spinal canal (units (u nknown) date) stenosis or neural unknown) foraminal narrowing. (unknown) (no (unknown) (unknown) spinal (units (unkno wn) date) unknown) (unknown) (no (unknown) (unknown) stenosis at (units (un known) date) unknown) (unknown) (no (unknown) (unknown) the spinal canal (units (unknown) date) as well as mild unknown) bilateral neural foraminal narrowing. (unknown) (no (unknown) (unknown) through the (units (un known) date) lumbar spine. In unknown) cases with scoliosis, additional coronal T2 fast (unknown) (no (unknown) (unknown) to severe right (units (unknown) date) neural foraminal unknown) narrowing. (unknown) (no (unknown) (unknown) which result in (units (unknown) date) mild bilateral unknown) neural foraminal narrowing without significant (unknown) (no (unknown) (unknown) which (units (unkno wn) date) unknown) Social History No information. Vital Signs No information.
[2022-06-19 13:40] VITALS: BP 136/64
== END 2022-06-19 13:45 | disposition home or self-care (01) ==
LOC: ED 12:00
DX: K56.41 Fecal impaction (principal)
CPT/HCPCS: 93005; 99283

== ENCOUNTER 2022-11-19 10:10 | Emergency (ER) | payer MEDICARE, OTHER ==
[2022-11-19 10:32] LABS: BASOPHILS % (AUTO) 0.5 %; EOSINOPHILS # (AUTO) 0.1 10^3/uL (0.0-0.7); EOSINOPHILS % (AUTO) 0.9 %; HCT - HEMATOCRIT 40.3 % (37.0-47.0); HGB - HEMOGLOBIN 13.9 g/dL (12.0-16.0); LYMPHOCYTES # (AUTO) 0.9 10^3/uL (1.5-3.5); LYMPHOCYTES % (AUTO) 12.6 %; MEAN CORPUSCULAR HEMOGLOBIN 31.7 pg (27.0-31.0); MEAN CORPUSCULAR HGB CONC 34.5 g/dL (32.0-36.0); MEAN CORPUSCULAR VOLUME 91.8 fL (81.0-99.0); MEAN PLATELET VOLUME 8.2 fL (7.9-10.8); MONOCYTES # (AUTO) 0.6 10^3/uL (0.0-1.0); MONOCYTES % (AUTO) 8.6 %; NEUTROPHILS # (AUTO) 5.7 10^3/uL (1.5-6.6); PLT - PLATELET COUNT 212 10^3/uL (130-450); RED BLOOD COUNT 4.39 10^6/uL (4.20-5.40); RED CELL DISTRIBUTION WIDTH 12.1 % (12.0-15.0); WHITE BLOOD COUNT 7.4 x10^3/uL (4.8-10.8)
[2022-11-19 10:45] LABS: ALBUMIN 4.1 g/dL (3.2-5.5); BILIRUBIN,TOTAL 0.7 mg/dL (0.2-1.0); CALCIUM 8.6 mg/dL (8.5-10.3); CREATININE 0.5 mg/dL (0.4-1.0); POTASSIUM 3.5 mmol/L (3.5-5.0); TOTAL PROTEIN 8.3 g/dL (6.7-8.2)
[2022-11-19] MEDS ORDERED: SODIUM CHLORIDE 0.9% 1,000 ML IV STA (11:57)
[2022-11-19 12:48] LABS: B. PARAPERTUSSIS- RESP PCR PAN NOT DETECTED; B. PERTUSSIS- RESP PCR PANEL NOT DETECTED; C. PNEUMONIAE- RESP PCR PANEL NOT DETECTED; CORONAVIRUS 229E-RESP PCR NOT DETECTED; CORONAVIRUS HKU1-RESP PCR NOT DETECTED; CORONAVIRUS NL63-RESP PCR NOT DETECTED; CORONAVIRUS OC43-RESP PCR NOT DETECTED; HUMAN METAPNEUMOVIRUS NOT DETECTED; INFLUENZA A- RESP PCR PANEL NOT DETECTED; INFLUENZA B - RESP PCR PANEL NOT DETECTED; M. PNEUMONIAE- RESP PCR PANEL NOT DETECTED; PARAINFLUENZA VIRUS 1 NOT DETECTED; PARAINFLUENZA VIRUS 2 NOT DETECTED; PARAINFLUENZA VIRUS 3 NOT DETECTED; PARAINFLUENZA VIRUS 4 NOT DETECTED; RHINOVIRUS/ENTEROVIRUS DETECTED; RSV- RESP PCR PANEL NOT DETECTED; SARS-CoV-2 -RESP PCR PANEL NOT DETECTED
--- NOTE | 2022-11-19 13:00 | ED Physician Documentation ---
History of Present Illness - Stated complaint Stated Complaint: FEMALE GI - Chief complaint Chief Complaint: Abd Pain - History obtained from History obtained from: Patient, Family - Additonal information Additional information: The patient is brought to the emergency department by her son for chief complaint of being sick and constipated. The patient was exposed several days ago to her son, who has been sick with upper respiratory type illness with nasal congestion and cough. The patient has also developed nasal congestion and is just very tired today. Her son thinks she has had a fever but it turns out they have not actually measured at home. She denies any shortness of breath, chest pain, cough, abdominal pain, nausea, or diarrhea. Patient is otherwise fairly healthy but has history of chronic constipation. Her normal bowel movement schedule is once every 3 to 4 days. It has been 3 to 4 days since her last bowel movement, but the patient states this constipation feels "different". Patient's son thinks she has a fecal impaction which she has had before. She is on MiraLAX at home and has been taking this at her usual doses. No other complaints at this time. 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 : None HEENT: None Psych: None Musculoskeletal: None Derm: None - Past Surgical History Past Surgical History: Yes General: Cholecystectomy, Colonoscopy /VOCATIONAL REHABILITATION CONSULTANT: Hysterectomy - Present Medications Home Medications: Ambulatory Orders Medication Instructions Recorded Confirmed Ascorbic Acid [Vitamin C] 1,000 mg PO DAILY 08/15/15 12/18/20 Cholecalciferol (Vitamin D3) 400 unit PO DAILY 08/15/15 12/18/20 [Vitamin D3] Multivitamin [Multivitamins] 1 each PO DAILY 08/15/15 12/18/20 [place]-3S/Dha/Epa/Fish Oil [Fish 1 each PO DAILY 08/15/15 12/18/20 Oil 1,200 mg Softgel] Vitamin B Complex 1 each PO DAILY 08/15/15 12/18/20 metFORMIN [Glucophage] 500 mg PO DAILY 08/15/15 12/18/20 Docusate Sodium 250Mg Capsule 250 mg PO DAILY #60 cap 11/19/22 [Colace 250Mg Capsule] - Allergies Allergies/Adverse Reactions: Allergies Allergy/AdvReac Type Severity Reaction Status Date / Time No Known Drug Allergies Allergy Verified 06/19/22 12:11 - Social History Does the pt smoke?: No Smoking Status: Never smoker Does the pt drink ETOH?: No Does the pt have substance abuse?: No - Immunizations Immunizations are current?: Yes - POLST Patient has POLST: No PD ED PE NORMAL - Vitals Vital signs reviewed: Yes - General General: No acute distress, Well developed/nourished, Other (The patient lays in bed with her eyes closed but is in no apparent distress.) - HEENT HEENT: Atraumatic, PERRL, EOMI, Moist mucous membranes - Neck Neck: Supple, no meningeal sign - Cardiac Cardiac: RRR, No murmur, Strong equal pulses - Respiratory Respiratory: No respiratory distress, Clear bilaterally - Abdomen Abdomen: Soft, Non tender, Non distended - Rectal Rectal: Other (Normal external anatomy of the anal area. Digital rectal exam reveals no masses and no impacted stool. Minimal stool noted at all.) - Derm Derm: Normal color, Warm and dry, No rash - Extremities Extremities: No deformity, No edema - Neuro Neuro: Alert and oriented X 3 - Psych Psych: Normal mood, Normal affect Results - Vitals Vitals: Vital Signs - 24 hr 11/19/22 11/19/22 11/19/22 10:14 12:30 13:00 Temperature 37 C Heart Rate 113 H 93 93 Respiratory 16 16 16 Rate Blood Pressure 143/71 H 141/71 H 139/71 H O2 Saturation 95 96 95 11/19/22 13:16 Temperature Heart Rate 99 Respiratory 22 Rate Blood Pressure O2 Saturation 96 Oxygen O2 Source Room air - Labs Labs: Laboratory Tests 11/19/22 11/19/22 11/19/22 10:23 10:25 10:25 WBC 7.4 RBC 4.39 Hgb 13.9 Hct 40.3 MCV 91.8 MCH 31.7 H MCHC 34.5 RDW 12.1 Plt Count 212 MPV 8.2 Neut # (Auto) 5.7 Lymph # (Auto) 0.9 L [place] # (Auto) 0.6 Eos # (Auto) 0.1 Baso # (Auto) 0.0 Absolute Nucleated RBC 0.00 Nucleated RBC % 0.0 Sodium 132 L Potassium 3.5 Chloride 99 L Carbon Dioxide 25 Anion Gap 8.0 BUN 14 Creatinine 0.5 Estimated GFR (MDRD) 117 Glucose 216 H POC Whole Bld Glucose 191 H Calcium 8.6 Total Bilirubin 0.7 AST 37 ALT 26 Alkaline Phosphatase 62 Total Protein 8.3 H Albumin 4.1 Globulin 4.2 Albumin/Globulin Ratio 1.0 Lipase 21 L Nasal Adenovirus (PCR) Nasal B. parapertussis DNA (PCR) Nasal Coronavir 229E PCR Nasal Coronavir HKU1 PCR Nasal Coronavir NL63 PCR Nasal Coronavir OC43 PCR Nasal Enterovir/Rhinovir PCR Nasal Influenza B PCR Nasal Influenza A PCR Nasal Parainfluen 1 PCR Nasal Parainfluen 2 PCR Nasal Parainfluen 3 PCR Nasal Parainfluen 4 PCR Nasal RSV (PCR) Nasal B.pertussis DNA PCR Nasal C.pneumoniae (PCR) [place] Human Metapneumo PCR Nasal M.pneumoniae (PCR) Nasal SARS-CoV-2 (PCR) 11/19/22 11:45 WBC RBC Hgb Hct MCV MCH MCHC RDW Plt Count MPV Neut # (Auto) Lymph # (Auto) [place] # (Auto) Eos # (Auto) Baso # (Auto) Absolute Nucleated RBC Nucleated RBC % Sodium Potassium Chloride Carbon Dioxide Anion Gap BUN Creatinine Estimated GFR (MDRD) Glucose POC Whole Bld Glucose Calcium Total Bilirubin AST ALT Alkaline Phosphatase Total Protein Albumin Globulin Albumin/Globulin Ratio Lipase Nasal Adenovirus (PCR) NOT DETECTED Nasal B. parapertussis DNA (PCR) NOT DETECTED Nasal Coronavir 229E PCR NOT DETECTED Nasal Coronavir HKU1 PCR NOT DETECTED Nasal Coronavir NL63 PCR NOT DETECTED Nasal Coronavir OC43 PCR NOT DETECTED Nasal Enterovir/Rhinovir PCR DETECTED A Nasal Influenza B PCR NOT DETECTED Nasal Influenza A PCR NOT DETECTED Nasal Parainfluen 1 PCR NOT DETECTED Nasal Parainfluen 2 PCR NOT DETECTED Nasal Parainfluen 3 PCR NOT DETECTED Nasal Parainfluen 4 PCR NOT DETECTED Nasal RSV (PCR) NOT DETECTED Nasal B.pertussis DNA PCR NOT DETECTED Nasal C.pneumoniae (PCR) NOT DETECTED [place] Human Metapneumo PCR NOT DETECTED Nasal M.pneumoniae (PCR) NOT DETECTED Nasal SARS-CoV-2 (PCR) NOT DETECTED PD Medical Decision Making - ED course Complexity details: reviewed results, re-evaluated patient, considered differential, d/w patient, d/w family ED course: The patient was worked up with labs and given a liter of 0.9 normal saline. Her blood work was unremarkable, including CBC and ER abdominal panel, which were ordered and reviewed by me. I did also order respiratory PCR panel, which came back positive for rhinovirus/enterovirus. I discussed with the patient and her son that no emergent management for her constipation is indicated. I have already done a rectal exam which has demonstrated no fecal impaction and really, fairly minimal stool in the rectal vault. I have encouraged them to increase the frequency or dosing of the MiraLAX, or to take the Colace which I have prescribed. I have also talked to the son and patient about doing home enemas. For now, patient stable to be discharged home. Although she was initially laying in bed with her eyes closed, she did rouse and immediately and briskly follow directions when directed to do certain things in the ED. Her vital signs are normal and I do not find any evidence of sepsis at this time. We have discussed the usual indications for return. Departure - Departure Disposition: 01 Home, Self Care Clinical Impression: Acute viral syndrome Constipation Qualifiers: Constipation type: unspecified constipation type Qualified Code(s): K59.00 - Constipation, unspecified Condition: Stable Instructions: ED Constipation, ED Viral Syndrome Prescriptions: Docusate Sodium 250Mg Capsule [Colace 250Mg Capsule] 250 mg PO DAILY #60 cap Comments: Your labs look good. Your viral panel is positive for rhinovirus, which has been going around quite a bit this spring. You most likely got this through your son who is also sick. At this point in time, there is nothing further to be done emergently. You will simply have to get rest until the virus passes. You should drink plenty of water every day. You can eat when you feel like eating. As far as your constipation, you have no stool in the rectum that is reachable by finger. At this point you need to continue taking your MiraLAX and you may also add the Colace that is been prescribed for you. The prescription for this has been electronically transmitted to the [facility] pharmacy in [place], your pharmacy of choice on record. You may also get [id number] enemas and try taking these once you are feeling better. There is no other "fix" for constipation in the emergency department. You will simply need to be patient and work on this at home. Discharge Date/Time: 11/19/22 13:16
[2022-11-19 13:19] VITALS: BP 139/71
== END 2022-11-19 13:16 | disposition home or self-care (01) ==
LOC: ED 10:10
DX: K59.00 Constipation, unspecified (principal); J06.9 Acute upper respiratory infection, unspecified; B97.10 Unspecified enterovirus as the cause of diseases classified elsewhere; B97.89 Other viral agents as the cause of diseases classified elsewhere; Z20.822 Contact with and (suspected) exposure to COVID-19
CPT/HCPCS: 36415; 80053; 83690; 85025; 87633; 99283; 99284

== ENCOUNTER 2023-08-27 09:26 | Outpatient (CLI) | payer MEDICARE ==
[2023-08-27 12:35] LABS: BASOPHILS # (AUTO) 0.1 10^3/uL (0.0-0.1); BASOPHILS % (AUTO) 1.1 %; EOSINOPHILS # (AUTO) 0.3 10^3/uL (0.0-0.7); EOSINOPHILS % (AUTO) 4.1 %; HCT - HEMATOCRIT 41.2 % (37.0-47.0); HGB - HEMOGLOBIN 13.4 g/dL (12.0-16.0); MEAN CORPUSCULAR HGB CONC 32.5 g/dL (32.0-36.0); MEAN CORPUSCULAR VOLUME 95.4 fL (81.0-99.0); MEAN PLATELET VOLUME 8.8 fL (7.9-10.8); MONOCYTES # (AUTO) 0.5 10^3/uL (0.0-1.0); MONOCYTES % (AUTO) 6.9 %; NEUTROPHILS # (AUTO) 4.3 10^3/uL (1.5-6.6); NEUTROPHILS % (AUTO) 59.8 %; PLT - PLATELET COUNT 254 10^3/uL (130-450); RED BLOOD COUNT 4.32 10^6/uL (4.20-5.40); RED CELL DISTRIBUTION WIDTH 12.5 % (12.0-15.0); WHITE BLOOD COUNT 7.3 x10^3/uL (4.8-10.8)
[2023-08-27 12:42] LABS: ESTIMATED AVERAGE GLUCOSE 223 mg/dL (70-100); HEMOGLOBIN A1c% 9.4 % (4.27-6.07)
[2023-08-27 12:46] LABS: BILIRUBIN,URINE NEGATIVE (NEGATIVE); GLUCOSE, URINE (UA) NEGATIVE (NEGATIVE); KETONES,URINE (UA) NEGATIVE (NEGATIVE); LEUKOCYTE ESTERASE, URINE LARGE (NEGATIVE); NITRITE,URINE POSITIVE (NEGATIVE); OCCULT BLOOD,URINE SMALL (NEGATIVE); PROTEIN,URINE NEGATIVE (NEGATIVE); UROBILINOGEN,URINE 0.2 (NORMAL) E.U./dL (NORMAL)
[2023-08-27 13:01] LABS: ALBUMIN 4.2 g/dL (3.2-5.5); ALBUMIN/GLOBULIN RATIO 1.2 (1.0-2.2); ALKALINE PHOSPHATASE 64 IU/L (42-121); ALT ALANINE AMINOTRANSFERASE 13 IU/L (10-60); AST ASPARTATE AMINOTRANSFERASE 19 IU/L (10-42); BUN - BLOOD UREA NITROGEN 12 mg/dL (6-20); CALCIUM 9.8 mg/dL (8.5-10.3); CARBON DIOXIDE - CO2 29 mmol/L (21-32); CHLORIDE 103 mmol/L (101-111); CHOL/HDL RATIO 3.2 (<4.4); CHOLESTEROL 172 mg/dL; CREATININE 0.6 mg/dL (0.6-1.3); CRP - C-REACTIVE PROTEIN < 0.5 mg/dL (<0.5); GFR - MDRD 95 (>89); GLUCOSE 162 mg/dL (74-104); HDL CHOLESTEROL 53 mg/dL; LDL CHOLESTEROL,CALCULATED 97 mg/dL; LDL/HDL RATIO 1.8 (<4.4); MAGNESIUM 1.8 mg/dL (1.7-2.3); POTASSIUM 3.9 mmol/L (3.5-4.5); SODIUM 139 mmol/L (135-145); TOTAL PROTEIN 7.6 g/dL (6.4-8.9); TRIGLYCERIDES 112 mg/dL (48-352); VLDL CHOLESTEROL 22 mg/dL
[2023-08-27 13:02] LABS: THYROID STIMULATING HORMONE 1.91 uIU/mL (0.34-5.60)
[2023-08-27 13:47] LABS: CLARITY,URINE HAZY (CLEAR); RBC,URINE 0-5 /HPF (0-5); SQUAMOUS EPITHELIAL CELL,UR FEW Squamous (<= Few); WBC CLUMPS,URINE PRESENT; WBC,URINE >25 /HPF (0-5)
[2023-08-27 13:48] LABS: BACTERIA,URINE Moderate /HPF (None Seen)
== END 2023-08-27 09:27 | disposition home or self-care (01) ==
LOC: LAB.N 09:26
PROVIDERS: ATTEND Internal Medicine
DX: E55.9 Vitamin D deficiency, unspecified (principal); E11.9 Type 2 diabetes mellitus without complications; I63.00 Cerebral infarction due to thrombosis of unspecified precerebral artery; E78.5 Hyperlipidemia, unspecified; Z79.899 Other long term (current) drug therapy
CPT/HCPCS: 36415; 80053; 80061; 81001; 82306; 83036; 83721; 83735; 84443; 85025; 85651; 86140